=== PATIENT | male | born 2000 | race Caucasian/White ===

== ENCOUNTER 2023-11-18 07:32 | Day surgery (SDC) | payer BC ==
[~2023-11-18 07:32] MED LIST: Midazolam 1 MG/ML 2 ML SDV ONE; Propofol 200 MG/20 ML SDV ONE; fentaNYL 50 MCG/ML SDV ONE
[2023-11-18] MEDS: Sodium Chloride 0.9% 1,000 ML IV SCH (08:14)
== END 2023-11-18 10:15 | disposition home or self-care (01) ==
LOC: JP.SDS 07:32
PROVIDERS: ATTEND Surgery
DX: K20.0 Eosinophilic esophagitis (principal); K22.89 Other specified disease of esophagus; Z91.010 Allergy to peanuts
CPT/HCPCS: 00731; 43239; 88305; J2250; J2704; J3010; J7030